=== PATIENT | female | born 1995 | race African-American/Black ===

== ENCOUNTER 2018-07-30 04:35 | Emergency (ER) | payer MEDICAID ==
[~2018-07-30] VITALS: Ht 162.6 cm; Wt 50.0 kg
[2018-07-30] MEDS ORDERED: FOLIC ACID 1 MG, THIAMINE HCL 100 MG, MVI, ADULT NO.1 10 ML in DEXTROSE 5% WATER 1,000 ML IV ONE ×4 (05:15)
[2018-07-30 05:48] LABS: BASOPHILS % 0.4 % (0.0-2.0); EOSINOPHILS % 0.9 % (0.0-5.0); HEMATOCRIT. 40.8 % (36.0-48.0); HEMOGLOBIN. 13.4 g/dL (12.0-16.0); LYMPHOCYTES % 34.2 % (20.0-50.0); MEAN CORPUSCULAR HEMOGLOBIN 27.2 pg (28.0-32.0); MEAN CORPUSCULAR VOLUME 82.8 fL (81.0-99.0); MEAN PLATELET VOLUME 10.1 fl (7.4-10.4); MONOCYTES % 5.2 % (2.0-8.0); NEUTROPHILS % 59.3 % (40.0-76.0); PLATELET 194 x1000/uL (130-400); RED BLOOD CELL COUNT 4.92 mill/uL (4.2-5.4); RED CELL DISTRIBUTION WIDTH 13.7 % (11.6-14.6)
[2018-07-30 05:54] LABS: CHLORIDE 108 mEq/L (98-107); PROTHROMBIN TIME 9.9 sec (9.1-11.1)
[2018-07-30 05:57] LABS: ETHANOL BLOOD 247 mg/dL
[2018-07-30 07:03] LABS: CLARITY URINE CLEAR (CLEAR); COLOR URINE YELLOW (YELLOW); KETONES URINE NEGATIVE (NEGATIVE); LEUKOCYTE ESTERASE URINE NEGATIVE (NEGATIVE); NITRITE URINE NEGATIVE (NEGATIVE); OCCULT BLOOD URINE NEGATIVE (NEGATIVE); PH URINE 5.5 (4.5-8.0); PROTEIN URINE NEGATIVE (NEGATIVE); SPECIFIC GRAVITY URINE 1.003 (1.005-1.030); UROBILINOGEN URINE 0.2 E.U./dL (0.2-1.0)
[2018-07-30 07:27] LABS: *AMPHETAMINES SCREEN URINE NEGATIVE (NEGATIVE); *BARBITURATES SCREEN URINE NEGATIVE (NEGATIVE); *BENZODIAZEPINES SCREEN URINE NEGATIVE (NEGATIVE)
[2018-07-30 07:28] LABS: CANNABINOID URINE SCREEN NEGATIVE (NEGATIVE); METHADONE URINE SCREEN NEGATIVE (NEGATIVE); OPIATES URINE SCREEN NEGATIVE (NEGATIVE); PHENCYCLIDINE URINE SCREEN NEGATIVE (NEGATIVE)
[2018-07-30 07:37] LABS: *COCAINE SCREEN URINE PRESUMTIVE POSITIVE (NEGATIVE)
[2018-07-30] MEDS ORDERED: SODIUM CHLORIDE 0.9% 1,000 ML IV ONE (08:15)
[2018-07-30] MEDS ORDERED: ONDANSETRON HCL 4MG/2ML INJ IV ONE (09:45)
[2018-07-30 10:48] VITALS: BP 92/58
== END 2018-07-30 11:00 | disposition home or self-care (01) ==
LOC: ER 04:35
DX: F10.129 Alcohol abuse with intoxication, unspecified (principal); F14.10 Cocaine abuse, uncomplicated; Y90.8 Blood alcohol level of 240 mg/100 ml or more
CPT/HCPCS: 36415; 80053; 80305; 81003; 81025; 83690; 85025; 85610; 96365; 96375; 99283; G0482; J2405; J3411; J3490; J7030; J7070

== ENCOUNTER 2019-05-17 01:50 | Emergency (ER) | payer SELFPAY ==
[~2019-05-17] VITALS: Ht 152.4 cm; Wt 43.0 kg
[2019-05-17] MEDS ORDERED: HYDROCODONE/ACETAMINOPHEN 5/325MG TABLET PO ONE (02:45)
[2019-05-17] MEDS ORDERED: IBUPROFEN 600MG TABLET PO ONE (02:45)
[2019-05-17] MEDS ORDERED: CEFTRIAXONE SODIUM 1 G/VIAL IM ONE (03:30)
[2019-05-17] MEDS ORDERED: LIDOCAINE HCL 1% 20ML VIAL (Pyxis) INJ INFIL ONE (03:30)
[2019-05-17] MEDS ORDERED: CLONIDINE 0.2MG TABLET PO ONE (03:30)
[2019-05-17 04:01] VITALS: BP 112/65
== END 2019-05-17 04:04 | disposition home or self-care (01) ==
LOC: ER 02:26
DX: N12 Tubulo-interstitial nephritis, not specified as acute or chronic (principal); Z87.440 Personal history of urinary (tract) infections; Z98.890 Other specified postprocedural states
CPT/HCPCS: 96372; 99283; J0696; J3490; Z7610